=== PATIENT | male | born 1965 | race Caucasian/White ===

== ENCOUNTER 2018-10-09 17:32 | Emergency (ER) | payer SELFPAY ==
--- NOTE | 2018-10-09 18:00 | NUR ---
NO ANSWER IN ER LOBBY
--- NOTE | 2018-10-09 18:00 | NUR ---
PT LWBS AT THIS TIME
== END 2018-10-09 18:00 | disposition left against medical advice (07) ==
LOC: MED 17:32
DX: Z53.21 Procedure and treatment not carried out due to patient leaving prior to being seen by health care provider (principal)

== ENCOUNTER 2019-11-13 12:30 | Emergency (ER) | payer SELFPAY ==
[~2019-11-13] VITALS: Ht 165.1 cm; Wt 69.9 kg
[2019-11-13 12:35] VITALS: BP 118/71
--- NOTE | 2019-11-13 12:40 | NUR ---
AMB TO BED 08 EVEN STEADY GAIT
--- NOTE | 2019-11-13 13:15 | NUR ---
C/O PRODUCTIVE COUGH WITH WHITISH PHLEGM, SOB, POSTNASAL DRIP X 4 DAYS WITH PLEURITIC CHEST PAIN AND BACK PAIN. DENIES FEVER/CHILLS, N/V. COUGH WORSE AT NIGHT AND WAKES PT UP AT NIGHT. NO MEDS TAKEN. NO PAIN NOW. PT ALERT ,AWAKE, AMBULATORY WITH STEADY GAIT ACCOMPANIED BY FAMILY HX- DENIES
--- NOTE | 2019-11-13 13:34 | NUR ---
xray at bedside
--- NOTE | 2019-11-13 14:24 | NUR ---
DR DEY RE-EVALUATING PT
--- NOTE | 2019-11-13 14:34 | NUR ---
Patient discharged with v/s stable. Written and verbal after care instructions given and explained viral infection. Patient alert, oriented and verbalized understanding of instructions. Ambulatory with steady gait. All questions addressed prior to discharge. ID band removed. Patient advised to follow up with PMD. Rx of promethazine hcl /dextromethrophan ,prednisone 50 mg /tab given. Patient educated on indication of medication including possible reaction and side effects. Opportunity to ask questions provided and answered.excuse for work given .
[2019-11-13 14:36] VITALS: BP 120/74
== END 2019-11-13 14:34 | disposition home or self-care (01) ==
LOC: MED 12:30
DX: R05 Cough (principal); R06.02 Shortness of breath; F17.210 Nicotine dependence, cigarettes, uncomplicated; Z71.6 Tobacco abuse counseling
CPT/HCPCS: 71045; 87804; 99283; Q0092

== ENCOUNTER 2022-03-19 10:28 | Emergency (ER) | payer BC, OTHER ==
[~2022-03-19] VITALS: Ht 167.6 cm; Wt 80.7 kg
[2022-03-19 10:31] VITALS: BP 128/85
[2022-03-19] MEDS ORDERED: PRED20TA5 PO (12:35)
--- NOTE | 2022-03-19 12:43 | NUR ---
NO NURSING CARE RENDERED
[2022-03-19 12:44] VITALS: BP 128/85
== END 2022-03-19 12:43 | disposition home or self-care (01) ==
LOC: MED 10:28
DX: J02.9 Acute pharyngitis, unspecified (principal); Z79.899 Other long term (current) drug therapy
CPT/HCPCS: 99283